=== PATIENT | male | born 1935 | race African-American/Black ===

== ENCOUNTER 2018-06-23 10:12 | Emergency (ER) | payer MEDICARE, OTHER ==
[~2018-06-23] VITALS: Ht 175.3 cm; Wt 78.0 kg
[~2018-06-23 10:12] MED LIST: AMLO10TA2 PO; ASPI-252 PO; ATOR20TA58 PO; AZIT1PAC PO; CARV12.52 PO; CIPR500T PO; DEXT15CA37 PO; FURO20TA3 PO; GLIP5TAB10 PO; HYDR-2868 PO; LISI10TA2 PO
--- NOTE | 2018-06-23 10:43 | EKG ---
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
--- NOTE | 2018-06-23 10:50 | RAD ---
PROCEDURE: PORTABLE CHEST 1V CLINICAL INDICATION: weakness with abd pain and vomiting x 1 day COMPARISON: 11/30/2015 FINDINGS: No pneumothorax identified. Cardiac and mediastinal contours unremarkable. No pulmonary consolidation or acute airspace disease. No acute osseous abnormalities identified. IMPRESSION: No pulmonary consolidation or acute airspace disease. Electronically signed by: Moreno Palacios DO (06/23/2018 10:46 AM) [facility]
[2018-06-23] MEDS ORDERED: ONDANSETRON PF 4 MG/2 ML VIAL. IV ONE ×2 (11:00→14:15)
--- NOTE | 2018-06-23 11:16 | PHYS DOC ---
Past History Past Medical History: CHF, Diabetes, High Cholesterol, Hyperthyroid, Other Past Surgical History: Other Alcohol Use: None Drug Use: None Adult General Chief Complaint Chief Complaint: ABDOMINAL PAIN HPI HPI Patient is a 82 year old male who presents with 2 day history of nausea vomiting and abdominal pain. Patient states she started having abdominal pain, lower and generalized, approximately evening and started to have nausea and vomiting. Patient denies any diarrhea. Patient is a type II diabetic on glipizide who also has end-stage renal disease and usually style eyes Monday and Saturdays. Patient was going to dialysis today but because of the vomiting he is referred to the emergency department first prior to his normal dialysis schedule. Patient denies any chest pain or shortness of breath and has no other acute complaints at this time. Review of Systems Review of Systems Constitutional: Denies fever or chills [] Eyes: Denies change in visual acuity, redness, or eye pain [] HENT: Denies nasal congestion or sore throat [] Respiratory: Denies cough or shortness of breath [] Cardiovascular: No additional information not addressed in HPI [] GI: Positive for abdominal pain, nausea, vomiting, negative for bloody stools or diarrhea [] : Denies dysuria or hematuria [] Musculoskeletal: Denies back pain or joint pain [] Integument: Denies rash or skin lesions [] Neurologic: Denies headache, focal weakness or sensory changes [] Endocrine: Denies polyuria or polydipsia [] All other systems were reviewed and found to be within normal limits, except as documented in this note. Current Medications Current Medications Current Medications Medications (Trade) Dose Ordered Sig/[facility] Start Time Stop Time Status Last Admin Dose Admin Ondansetron HCl (Zofran) 4 mg 1X ONCE 06/23/18 11:00 06/23/18 11:01 DC 06/23/18 11:11 4 MG Allergies Allergies Allergies Coded Allergies Type Severity Reaction Last Updated Verified No Known Drug Allergies 11/30/15 No Physical Exam Physical Exam Constitutional: Well developed, well nourished, no acute distress, non-toxic appearance. [] HENT: Normocephalic, atraumatic, bilateral external ears normal, oropharynx moist, no oral exudates, nose normal. [] Eyes: PERRLA, EOMI, conjunctiva normal, no discharge. [] Neck: Normal range of motion, no tenderness, supple, no stridor. [] Cardiovascular:Heart rate regular rhythm, no murmur [] Lungs & Thorax: Bilateral breath sounds clear to auscultation [] Abdomen: Bowel sounds normal, soft, mild generalized lower quadrant tenderness , no masses, no pulsatile masses. [] Skin: Warm, dry, no erythema, no rash. [] Back: No tenderness, no CVA tenderness. [] Extremities: No tenderness, no cyanosis, no clubbing, ROM intact, no edema. Positive thrill to his left forearm AV shunt[] Neurologic: Alert and oriented X 3, normal motor function, normal sensory function, no focal deficits noted. [] Psychologic: Affect normal, judgement normal, mood normal. [] EKG EKG Normal sinus rhythm at a rate of 68[] Radiology/Procedures Radiology/Procedures Normal chest x-ray shows possible mild cardiomegaly and calcification in the aortic knob otherwise no acute disease[] Signed PATIENT: NATO WINTERS ACCOUNT: [id number] : 1935 LOCATION: ER AGE: 82 SEX: M EXAM STATUS: PRE ER ORD. PHYSICIAN: KAVITA SOLORZANO MD REASON: abdominal pain PROCEDURE: CT ABD PELV W/ IV CONTRST ONLY Indication:Abd pain x 1 day with renal disease pt receives Dialysis [facility] Sat TECHNIQUE: CT abdomen and pelvis with IV contrast with multiplanar reformats. COMPARISON: None FINDINGS: Heart is normal in size. No pericardial or pleural effusion. Mild bibasilar dependent atelectasis seen. Liver, spleen, adrenals are within normal limits. Gallstone noted. No pericholecystic fluid or gallbladder wall thickening. Bilateral atrophic kidneys are seen with low attenuating lesions. No nephrolithiasis or hydronephrosis. There is diffuse peripancreatic inflammatory changes. The pancreas demonstrates homogeneous enhancement. There is a 7 mm stone in the ampulla likely in the main pancreatic duct and the level of ampulla. The main pancreatic duct at this level measures 5 mm and is mildly dilated. No peripancreatic fluid collection. Shotty retroperitoneal lymph nodes are seen. No pelvic adenopathy. Diffuse atherosclerotic calcifications are seen of the abdominal aorta and bilateral iliac arteries. No free pelvic fluid or ascites. Small bilateral fat-containing inguinal hernias noted right greater than left. Descending colon diverticulosis seen. No bowel obstruction. Normal appendix. Prostate is enlarged measuring 5.1 x 5.1 x 5.0 cm. There is mild circumferential wall thickening of the urinary bladder. No suspicious bony lesion. IMPRESSION: 1. Pancreatitis secondary to an obstructing stone in the main pancreatic duct the level of ampulla. ERCP recommended. 2. Cholelithiasis without imaging evidence of acute cholecystitis. 3. Enlarged prostate. Correlate with physical exam and PSA. 4. Circumferential bladder wall thickening likely secondary to chronic outlet obstruction. 5. Atrophic bilateral kidneys with attenuating lesions most like a simple cysts. Electronically signed by: Moreno Palacios DO (06/23/2018 1:03 PM) [facility] DICTATED AND SIGNED BY: MORENO PALACIOS DO DATE: 06/23/18 [id number] CC: KAVITA SOLORZANO MD; PCP,UNKNOWN ~ [address] [address] IMAGING REPORT Signed PATIENT: NATO WINTERS ACCOUNT: [id number] : 1935 LOCATION: ER AGE: 82 SEX: M EXAM STATUS: PRE ER ORD. PHYSICIAN: KAVITA SOLORZANO MD REASON: vomiting PROCEDURE: PORTABLE CHEST 1V PROCEDURE: PORTABLE CHEST 1V CLINICAL INDICATION: weakness with abd pain and vomiting x 1 day COMPARISON: 11/30/2015 FINDINGS: No pneumothorax identified. Cardiac and mediastinal contours unremarkable. No pulmonary consolidation or acute airspace disease. No acute osseous abnormalities identified. IMPRESSION: No pulmonary consolidation or acute airspace disease. Electronically signed by: Moreno Palacios DO (06/23/2018 10:46 AM) [facility] DICTATED AND SIGNED BY: MORENO PALACIOS DO DATE: 06/23/18 [id number] CC: KAVITA SOLORZANO MD; PCP,UNKNOWN ~ Course & Med Decision Making Course & Med Decision Making Pertinent Labs and Imaging studies reviewed. (See chart for details) Called [facility] to see if they would be able to manage a dialysis patient that needed an ERCP and was referred to call the GI specialist - who stated that he does do ERCPs and was wanting to accept the patient and advised patient be admitted to the hospitalist there with nephrology being aware since the patient will need to be dialyzed in the first 24 hours. [] Discussed with Dr Perez - she accepts the patient in transfer to [place] and is aware that [facility] about the patient knows that he needs an ERCP and has accepted him in transport as well. 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 The patient will go to stepdown. Dragon Disclaimer Dragon Disclaimer This electronic medical record was generated, in whole or in part, using a voice recognition dictation system. Departure Departure: Impression: Primary Impression: Acute pancreatitis due to calculus of common bile duct Additional Impressions: End stage renal disease on dialysis Sepsis Disposition: 02 XFER SHT-TRM HOSP ([place]) Admitting Physician: Other (Dr Perez) Condition: STABLE Referrals: PCP,UNKNOWN (PCP) Problem Qualifiers KAVITA SOLORZANO MD Jun 23, 2018 11:16
[2018-06-23 11:20] LABS: BASO # 0.1 x10^3/uL (0.0-0.2); BASO % 0 % (0-3); EOS % 0 % (0-3); HEMATOCRIT 34.9 % (39.0-53.0); HEMOGLOBIN 11.4 g/dL (13.0-17.5); LYMPH # 1.1 x10^3/uL (1.0-4.8); LYMPH % 6 % (24-48); MEAN CORPUSCULAR HEMOGLOBIN 28 pg (25-35); MEAN CORPUSCULAR HGB CONC 33 g/dL (31-37); MEAN CORPUSCULAR VOLUME 87 fL (79-100); MONO # 1.6 x10^3/uL (0.0-1.1); MONO % 9 % (0-9); NEUT # 16.3 x10^3uL (1.8-7.7); NEUT % 85 % (31-73); PLATELET COUNT 221 x10^3/uL (140-400); RED BLOOD COUNT 4.03 x10^6/uL (4.30-5.70); RED CELL DISTRIBUTION WIDTH 16.9 % (11.5-14.5); WHITE BLOOD COUNT 19.1 x10^3/uL (4.0-11.0)
[2018-06-23 11:33] LABS: ALBUMIN 3.6 g/dL (3.4-5.0); ALBUMIN/GLOBULIN RATIO 0.8 (1.0-1.7); CALCIUM 9.6 mg/dL (8.5-10.1); CREATININE 8.8 mg/dL (0.7-1.3); POTASSIUM 5.4 mmol/L (3.5-5.1); TOTAL BILIRUBIN 0.7 mg/dL (0.2-1.0); TOTAL PROTEIN 8.2 g/dL (6.4-8.2)
[2018-06-23] MEDS ORDERED: IOHEXOL 300 MG/ML 75 ML VIAL. IV ONE (12:00)
[2018-06-23] MEDS ORDERED: IV NORMAL SALINE 1,000ML 1,000 ML IV ONE (12:00)
[2018-06-23] MEDS ORDERED: PIPERACILLIN/TAZOBACTAM 3.375 GM VIAL IV ONE (12:08)
[2018-06-23] MEDS ORDERED: IV NORMAL SALINE 50ML 50 ML ONE (12:08)
[2018-06-23 12:16] LABS: % BANDS 2 % (0-9); % LYMPHS 12 % (24-48); % MONOS 4 % (0-10); % SEGS 82 % (35-66)
[2018-06-23 12:17] LABS: PLT ESTIMATE ADEQUATE (ADEQUATE)
[2018-06-23] MEDS ORDERED: PIPERACILLIN/TAZOBACTAM 3.375 GM in IV NORMAL SALINE 50ML 50 ML IV ONE (12:20)
[2018-06-23] MEDS ORDERED: VANCOMYCIN 1 GM VIAL. ONE (12:26)
[2018-06-23] MEDS ORDERED: IV NORMAL SALINE 250ML 250 ML ONE (12:26)
[2018-06-23] MEDS ORDERED: VANCOMYCIN 1 GM in IV NORMAL SALINE 250ML 250 ML IV ONE (12:30)
--- NOTE | 2018-06-23 13:07 | RAD ---
Indication:Abd pain x 1 day with renal disease pt receives Dialysis [facility] Sat TECHNIQUE: CT abdomen and pelvis with IV contrast with multiplanar reformats. COMPARISON: None FINDINGS: Heart is normal in size. No pericardial or pleural effusion. Mild bibasilar dependent atelectasis seen. Liver, spleen, adrenals are within normal limits. Gallstone noted. No pericholecystic fluid or gallbladder wall thickening. Bilateral atrophic kidneys are seen with low attenuating lesions. No nephrolithiasis or hydronephrosis. There is diffuse peripancreatic inflammatory changes. The pancreas demonstrates homogeneous enhancement. There is a 7 mm stone in the ampulla likely in the main pancreatic duct and the level of ampulla. The main pancreatic duct at this level measures 5 mm and is mildly dilated. No peripancreatic fluid collection. Shotty retroperitoneal lymph nodes are seen. No pelvic adenopathy. Diffuse atherosclerotic calcifications are seen of the abdominal aorta and bilateral iliac arteries. No free pelvic fluid or ascites. Small bilateral fat-containing inguinal hernias noted right greater than left. Descending colon diverticulosis seen. No bowel obstruction. Normal appendix. Prostate is enlarged measuring 5.1 x 5.1 x 5.0 cm. There is mild circumferential wall thickening of the urinary bladder. No suspicious bony lesion. IMPRESSION: 1. Pancreatitis secondary to an obstructing stone in the main pancreatic duct the level of ampulla. ERCP recommended. 2. Cholelithiasis without imaging evidence of acute cholecystitis. 3. Enlarged prostate. Correlate with physical exam and PSA. 4. Circumferential bladder wall thickening likely secondary to chronic outlet obstruction. 5. Atrophic bilateral kidneys with attenuating lesions most like a simple cysts. Electronically signed by: Moreno Palacios DO (06/23/2018 1:03 PM) [facility]
[2018-06-23] MEDS ORDERED: HYDROmorphone PF 1 MG/ML DISP.SYRIN IV ONE (14:15)
[2018-06-23 14:52] VITALS: BP 111/58
== END 2018-06-23 15:43 | disposition short-term general hospital (02) ==
LOC: ER 10:12
DX: K85.90 Acute pancreatitis without necrosis or infection, unspecified (principal); K80.50 Calculus of bile duct without cholangitis or cholecystitis without obstruction; A41.9 Sepsis, unspecified organism; E11.22 Type 2 diabetes mellitus with diabetic chronic kidney disease; I13.2 Hypertensive heart and chronic kidney disease with heart failure and with stage 5 chronic kidney disease, or end stage renal disease; I50.9 Heart failure, unspecified; N18.6 End stage renal disease; E78.00 Pure hypercholesterolemia, unspecified; E05.90 Thyrotoxicosis, unspecified without thyrotoxic crisis or storm; Z99.2 Dependence on renal dialysis
CPT/HCPCS: 36415; 71045; 74177; 80053; 83605; 83690; 84484; 85007; 85025; 93005; 96365; 96366; 96368; 96375; 96376; 99285; J1170; J2405; J2543; J3370; J7050; Q9967; J7030

== ENCOUNTER 2019-02-10 09:51 | Emergency (ER) | payer OTHER ==
[~2019-02-10] VITALS: Ht 175.3 cm; Wt 98.0 kg
[~2019-02-10 09:51] MED LIST changes: -AMLO10TA2 PO; +AMLO10TA8 PO; -CARV12.52 PO; +CARV12.547 PO
[2019-02-10 09:58] VITALS: BP 120/50
[2019-02-10 10:37] LABS: BASO # 0.1 x10^3/uL (0.0-0.2); BASO % 1 % (0-3); EOS % 0 % (0-3); HEMATOCRIT 33.4 % (39.0-53.0); HEMOGLOBIN 10.8 g/dL (13.0-17.5); LYMPH # 1.4 x10^3/uL (1.0-4.8); LYMPH % 30 % (24-48); MEAN CORPUSCULAR HEMOGLOBIN 28 pg (25-35); MEAN CORPUSCULAR HGB CONC 32 g/dL (31-37); MEAN CORPUSCULAR VOLUME 86 fL (79-100); MONO # 0.7 x10^3/uL (0.0-1.1); MONO % 16 % (0-9); NEUT # 2.5 x10^3uL (1.8-7.7); NEUT % 53 % (31-73); PLATELET COUNT 159 x10^3/uL (140-400); RED BLOOD COUNT 3.87 x10^6/uL (4.30-5.70); RED CELL DISTRIBUTION WIDTH 18.5 % (11.5-14.5); WHITE BLOOD COUNT 4.6 x10^3/uL (4.0-11.0)
[2019-02-10 10:45] LABS: ALBUMIN 3.5 g/dL (3.4-5.0); ALBUMIN/GLOBULIN RATIO 0.8 (1.0-1.7); CALCIUM 8.8 mg/dL (8.5-10.1); CREATININE 6.5 mg/dL (0.7-1.3); GFR 9.9; MAGNESIUM 1.5 mg/dL (1.8-2.4); POTASSIUM 4.4 mmol/L (3.5-5.1); TOTAL BILIRUBIN 0.5 mg/dL (0.2-1.0); TOTAL PROTEIN 7.9 g/dL (6.4-8.2)
--- NOTE | 2019-02-10 10:53 | PHYS DOC ---
Past History Past Medical History: CHF, Diabetes, High Cholesterol, Hypertension, Hyperthyroid, Other Past Surgical History: Other Smoking: Non-smoker Alcohol Use: None Drug Use: None Adult General Chief Complaint Chief Complaint: MECHANICAL FALL HPI HPI Patient is a 83-year-old male who presents with right-sided chest discomfort. Patient is a Monday, , Monday dialysis patient. Last night after dialysis, at approximately midnight, he had to get up quickly to use the restroom. He knows that he is supposed to wait a few seconds before walking when he stands due to medications that he is on for his blood pressure and other chronic diseases. He did not do that and had a syncopal episode. After waking up he noted some right-sided chest discomfort from the fall. Breathing seems to make this worse. He denies any cough or increased shortness of breath. Denies any radiation of the discomfort. He had no relief with the Aleve that he took. Pain is moderate in intensity.[] Review of Systems Review of Systems Constitutional: Denies fever or chills [] Eyes: Denies change in visual acuity, redness, or eye pain [] HENT: Denies nasal congestion or sore throat [] Respiratory: Denies cough or shortness of breath [] Cardiovascular: No additional information not addressed in HPI [] GI: Denies abdominal pain, nausea, vomiting, bloody stools or diarrhea [] : Denies dysuria or hematuria [] Musculoskeletal: Denies back pain or joint pain [] Integument: Denies rash or skin lesions [] Neurologic: Denies headache, focal weakness or sensory changes [] Endocrine: Denies polyuria or polydipsia [] All other systems were reviewed and found to be within normal limits, except as documented in this note. Current Medications Current Medications Current Medications Medications (Trade) Dose Ordered Sig/[facility] Start Time Stop Time Status Last Admin Dose Admin Ketorolac Tromethamine (Toradol 15mg Vial) 15 mg 1X ONCE 02/10/19 10:55 02/10/19 10:56 Allergies Allergies Allergies Coded Allergies Type Severity Reaction Last Updated Verified No Known Drug Allergies 11/30/15 No Physical Exam Physical Exam Constitutional: Well developed, well nourished, no acute distress, non-toxic appearance. [] HENT: Normocephalic, atraumatic, bilateral external ears normal, oropharynx moist, no oral exudates, nose normal. [] Eyes: PERRLA, EOMI, conjunctiva normal, no discharge. [] Neck: Normal range of motion, no tenderness, supple, no stridor. [] Cardiovascular:Heart rate regular rhythm, no murmur [] Lungs & Thorax: Bilateral breath sounds clear to auscultation there is tenderness to palpation on the right side at approximately rib 9, anterior axillary line. There is no crepitus, no bruising, no flail segment is appreciated. [] Abdomen: Bowel sounds normal, soft, no tenderness, no masses, no pulsatile masses. [] Skin: Warm, dry, no erythema, no rash. [] Back: No tenderness, no CVA tenderness. [] Extremities: No tenderness, no cyanosis, no clubbing, ROM intact, no edema. [] Neurologic: Alert and oriented X 3, normal motor function, normal sensory function, no focal deficits noted. [] Psychologic: Affect normal, judgement normal, mood normal. [] Current Patient Data Vital Signs Vital Signs Date Time Temp Pulse Resp B/P (MAP) Pulse Ox O2 Delivery O2 Flow Rate FiO2 02/10/19 09:58 98.4 51 20 99 Room Air Lab Results Laboratory Tests Test 02/10/19 10:00 White Blood Count 4.6 x10^3/uL (4.0-11.0) Red Blood Count 3.87 x10^6/uL (4.30-5.70) L Hemoglobin 10.8 g/dL (13.0-17.5) L Hematocrit 33.4 % (39.0-53.0) L Mean Corpuscular Volume 86 fL (79-100) Mean Corpuscular Hemoglobin 28 pg (25-35) Mean Corpuscular Hemoglobin Concent 32 g/dL (31-37) Red Cell Distribution Width 18.5 % (11.5-14.5) H Platelet Count 159 x10^3/uL (140-400) Neutrophils (%) (Auto) 53 % (31-73) Lymphocytes (%) (Auto) 30 % (24-48) Monocytes (%) (Auto) 16 % (0-9) H Eosinophils (%) (Auto) 0 % (0-3) Basophils (%) (Auto) 1 % (0-3) Neutrophils # (Auto) 2.5 x10^3uL (1.8-7.7) Lymphocytes # (Auto) 1.4 x10^3/uL (1.0-4.8) Monocytes # (Auto) 0.7 x10^3/uL (0.0-1.1) Eosinophils # (Auto) 0.0 x10^3/uL (0.0-0.7) Basophils # (Auto) 0.1 x10^3/uL (0.0-0.2) Sodium Level 142 mmol/L (136-145) Potassium Level 4.4 mmol/L (3.5-5.1) Chloride Level 101 mmol/L (98-107) Carbon Dioxide Level 30 mmol/L (21-32) Anion Gap 11 (6-14) Blood Urea Nitrogen 26 mg/dL (8-26) Creatinine 6.5 mg/dL (0.7-1.3) H Estimated GFR (Cockcroft-Gault) 9.9 BUN/Creatinine Ratio 4 (6-20) L Glucose Level 155 mg/dL (70-99) H Calcium Level 8.8 mg/dL (8.5-10.1) Magnesium Level 1.5 mg/dL (1.8-2.4) L Total Bilirubin 0.5 mg/dL (0.2-1.0) Aspartate Amino Transferase (AST) 17 U/L (15-37) Alanine Aminotransferase (ALT) 22 U/L (16-63) Alkaline Phosphatase 82 U/L (46-116) Total Protein 7.9 g/dL (6.4-8.2) Albumin 3.5 g/dL (3.4-5.0) Albumin/Globulin Ratio 0.8 (1.0-1.7) L EKG EKG EKG shows a sinus rhythm. Left axis deviation, rate of 52 bpm, QTC of 411 ms, when compared with EKG of 06/23/2018 no acute changes were noted. Interpreted by me at 1009.[] Radiology/Procedures Radiology/Procedures PA view of the chest, AP oblique right rib views Comparison: Chest radiograph dated 07/10/2018. Indication: fell today right side rib pain Findings: Normal lung volume. No focal airspace disease. A 0.4 cm nodular opacity is seen in the region of the left anterolateral first rib. Normal pulmonary vasculature. Unchanged blunting of the left lateral costophrenic angle. No pneumothorax. Unchanged cardiomegaly. Prominence of the upper right mediastinum/right paratracheal stripe, unchanged from priors. Unchanged atherosclerotic and tortuous thoracic aorta. No acute osseous abnormality. No displaced rib fracture. Impression: 1. No acute cardiopulmonary process. 2. No displaced rib fracture. 3. Unchanged blunting of the left lateral costophrenic angle which may relate to pleural thickening versus tiny pleural effusion. 4. A 0.4 cm nodular opacity is seen in the region of the left anterolateral first rib. It is possible this relates to summation of shadows. Short-term PA and lateral radiographic follow-up could be obtained.[] Course & Med Decision Making Course & Med Decision Making Pertinent Labs and Imaging studies reviewed. (See chart for details) ED course: Patient arrived, was placed in bed, and tolerated exam well. He was transported to [facility] from [facility] with any complications. He did get pain relief with the ketorolac. Findings were discussed with the patient. He voiced understanding. All questions were answered. Medical decision making: This is be an orthostatic syncopal episode given the fluid changes with the dialysis along with his long-term medication usage. Patient's EKG appears unchanged from previous, his cardiac enzymes are undetectable. There is no evidence of pneumonia or pneumothorax. No evidence of an acute coronary syndrome.[] Dragon Disclaimer Dragon Disclaimer This electronic medical record was generated, in whole or in part, using a voice recognition dictation system. Departure Departure: Impression: Primary Impression: Orthostatic syncope Additional Impression: Rib contusion Disposition: 01 HOME, SELF-CARE Condition: IMPROVED Referrals: NON,STAFF (PCP) Patient Instructions: Rib Contusion, Syncope Additional Instructions: Follow-up with your regular doctor in 2 days. Take the meloxicam as prescribed instead of the Aleve. Take the tramadol if needed for pain not controlled by the meloxicam. Return to the ER if worsening pain, difficulty breathing, or any other concerns. Scripts Tramadol Hcl (TRAMADOL HCL) 50 Mg Tablet 50 MG PO PRN Q6HRS PRN for PAIN, #20 TAB Prov: MISTY ESPARZA DO 02/10/19 Meloxicam (MELOXICAM) 7.5 Mg Tablet 7.5 MG PO DAILY for PAIN, #20 TAB Prov: MISTY ESPARZA DO 02/10/19 Problem Qualifiers Additional Impression: Rib contusion Encounter type: initial encounter Laterality: right Qualified Codes: S20.211A - Contusion of right front wall of thorax, initial encounter MISTY ESPARZA DO Feb 10, 2019 10:53
[2019-02-10] MEDS ORDERED: KETOROLAC 15 MG/ML VIAL. IV ONE (10:55)
--- NOTE | 2019-02-10 11:12 | RAD ---
PA view of the chest, AP oblique right rib views Comparison: Chest radiograph dated 07/10/2018. Indication: fell today right side rib pain Findings: Normal lung volume. No focal airspace disease. A 0.4 cm nodular opacity is seen in the region of the left anterolateral first rib. Normal pulmonary vasculature. Unchanged blunting of the left lateral costophrenic angle. No pneumothorax. Unchanged cardiomegaly. Prominence of the upper right mediastinum/right paratracheal stripe, unchanged from priors. Unchanged atherosclerotic and tortuous thoracic aorta. No acute osseous abnormality. No displaced rib fracture. Impression: 1. No acute cardiopulmonary process. 2. No displaced rib fracture. 3. Unchanged blunting of the left lateral costophrenic angle which may relate to pleural thickening versus tiny pleural effusion. 4. A 0.4 cm nodular opacity is seen in the region of the left anterolateral first rib. It is possible this relates to summation of shadows. Short-term PA and lateral radiographic follow-up could be obtained. Electronically signed by: Jair Lee MD (02/10/2019 11:09 AM) [facility]
[2019-02-10] MEDS ORDERED: MELO7.5T29 PO (11:26)
[2019-02-10] MEDS ORDERED: TRAM50TA PO (11:26)
--- NOTE | 2019-02-10 18:15 | EKG ---
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
== END 2019-02-10 11:01 | disposition home or self-care (01) ==
LOC: ER 09:51
DX: S20.211A Contusion of right front wall of thorax, initial encounter (principal); R55 Syncope and collapse; I11.0 Hypertensive heart disease with heart failure; I50.9 Heart failure, unspecified; E78.00 Pure hypercholesterolemia, unspecified; E03.9 Hypothyroidism, unspecified; W18.39XA Other fall on same level, initial encounter; Y93.89 Activity, other specified; Y92.89 Other specified places as the place of occurrence of the external cause; Y99.8 Other external cause status
CPT/HCPCS: 36415; 71101; 80053; 83735; 84484; 85025; 93005; 96374; 99284; J1885